=== PATIENT | female | born 1955 | race Caucasian/White ===

== ENCOUNTER 2023-05-17 14:32 | Emergency (ER) | payer OTHER ==
[~2023-05-17] VITALS: Ht 157.5 cm; Wt 51.7 kg
[2023-05-17 14:32] VITALS: BP_SYST 139; PULSE 70; RESP 18; TEMP 98.8; O2SAT 98
== END 2023-05-17 16:18 | disposition home or self-care (01) ==
LOC: SED 14:32
DX: R51.9 Headache, unspecified (principal); Z88.0 Allergy status to penicillin; Z79.899 Other long term (current) drug therapy
CPT/HCPCS: 70450-TC; 76376; 99284